=== PATIENT | female | born 1965 | race Caucasian/White ===

== ENCOUNTER 2017-12-12 11:46 | Emergency (ER) | payer OTHER ==
[2017-12-12 12:16] VITALS: RESP 18; TEMP 98.8
[2017-12-12] MEDS ORDERED: RX INFO: IV CONTRAST WAS GIVEN 1 EACH MISC MISCELLANE PRN (13:32)
[2017-12-12] MEDS ORDERED: ONDANSETRON 4 MG/2 ML VIAL IVP STA (13:32)
[2017-12-12] MEDS ORDERED: MORPHINE SULFATE/PF 10MG/10ML VL IVP STA (13:32)
[2017-12-12] MEDS ORDERED: PANTOPRAZOLE 40 MG/10 ML VIAL IVP STA (13:38)
[2017-12-12 14:15] LABS: Anisocytosis Slight; Basophils # (A) 0.1 k/uL (0-0.2); Basophils % (A) 1 %; Eosinophils # (A) 0.4 k/uL (0-0.7); Eosinophils % (A) 5 %; HCT 41.9 % (34.0-46.0); HGB 12.2 gm/dL (11.4-16.0); Hypochromasia Marked; Lymphocytes % (A) 15 %; MCH 22.8 pg (25.0-35.0); MCV 78.4 fL (80.0-100.0); Mean Platelet Volume 11.2; Microcytosis Slight; Monocytes # (A) 0.4 k/uL (0-1.0); Monocytes % (A) 6 %; Neutrophils # (A) 5.1 k/uL (1.3-7.7); Neutrophils % (A) 72 %; Platelet Count 145 k/uL (150-450); RBC 5.35 m/uL (3.80-5.40); RDW 16.5 % (11.5-15.5); WBC 7.1 k/uL (3.8-10.6)
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
[2017-12-12 14:19] LABS: Appearance,Urine Clear (Clear); Bilirubin,Urine Negative (Negative); Blood,Urine Negative (Negative); Color,Urine Light Yellow; Glucose,Urine (UA) Negative (Negative); Ketones,Urine Negative (Negative); Leukocyte Esterase,Urine Trace (Negative); Mucus,Urine Rare /hpf; Nitrite,Urine Negative (Negative); PH, Urine 5.5 (5.0-8.0); Protein,Urine Negative (Negative); Specific Gravity,Urine 1.009 (1.001-1.035); Squamous Epithelial Cell,Urine 4 /hpf (0-4); Urobilinogen,Urine <2.0 mg/dL (<2.0); WBC,Urine 1 /hpf (0-5)
[2017-12-12 14:26] LABS: ALT 28 U/L (9-52); AST 29 U/L (14-36); Albumin 3.9 g/dL (3.5-5.0); Alkaline Phosphatase 69 U/L (38-126); Amylase 45 U/L (30-110); Anion Gap 12 mmol/L; Blood Urea Nitrogen 11 mg/dL (7-17); Calcium 9.2 mg/dL (8.4-10.2); Carbon Dioxide 20 mmol/L (22-30); Chloride 112 mmol/L (98-107); Glucose 98 mg/dL (74-99); Lipase 237 U/L (23-300); Potassium 3.9 mmol/L (3.5-5.1); Sodium 144 mmol/L (137-145); Total Bilirubin 0.2 mg/dL (0.2-1.3); Total Protein 6.6 g/dL (6.3-8.2)
--- NOTE | 2017-12-12 15:52 | CT ---
EXAMINATION TYPE: CT abdomen pelvis w con DATE OF EXAM: 12/12/2017 COMPARISON: NONE HISTORY: Weight loss, decreased appetite, nausea, diarrhea and low abdominal pain. CT DLP: 800 mGycm Automated exposure control for dose reduction was used. CONTRAST: CT scan of the abdomen pelvis is performed with IV Contrast, patient injected with 100 mL of Isovue M 300. FINDINGS- LUNG BASES-there are multiple pulmonary nodules within the right lung the largest is calcified measur ing 8 mm.. LIVER/GB-gallbladder prominent in size. Measures 6.2 cm.. PANCREAS- No gross abnormality is seen. SPLEEN- No gross abnormality is seen. ADRENALS- No gross abnormality is seen. KIDNEYS/BLADDER- no hydronephrosis nephrolithiasis or renal mass. BOWEL-gas pattern is nonspecific. Changes of diverticulosis noted. Appendix is normal.. LYMPH NODES- No greater than 1cm abdominal or pelvic lymph nodes areappreciated. OSSEOUS STRUCTURES- No significant abnormality is seen. OTHER- calcification the uterus suggestive of a uterine fibroid. Retroaortic left renal vein noted. IMPRESSION- 1. Suspect a calcified uterine fibroid. 2. Normal appendix. 3. Mild induration of the fat within the right lower quadrant could be related to partial volume aver aging. Mild inflammatory component of mesenteric right is severe enteritis not excluded correlate cli nically. 4. Mild prominence the gallbladder measuring 6 cm but no evidence of gallstones or intrahepatic bilia ry dilation. 5. Right-sided pulmonary nodules at least one of which is calcified suggestive of granuloma.
[2017-12-12 16:25] VITALS: BP 126/74; PULSE 60
== END 2017-12-12 16:32 | disposition home or self-care (01) ==
LOC: EC 11:46
DX: K52.9 Noninfective gastroenteritis and colitis, unspecified (principal); K21.9 Gastro-esophageal reflux disease without esophagitis; F17.200 Nicotine dependence, unspecified, uncomplicated; Z91.030 Bee allergy status; Z79.899 Other long term (current) drug therapy
CPT/HCPCS: 99284; 96374; 96375 ×2; 36415; 80053; 82150; 83605; 83690; 85025; 81001; 87086; 74177; J2405; C9113; Q9967; J2270

== ENCOUNTER 2018-01-02 11:39 | Day surgery (SDC) | payer OTHER ==
[2017-12-28 12:04] VITALS: BMI 22.0
[~2018-01-02 11:39] MED LIST: LIDOCAINE 1% 20 ML VIAL (10MG/ML) FOR IV START INTRADERMA PRN
[2018-01-02 12:00] VITALS: RESP 16; TEMP 97.6
[2018-01-02] MEDS: LACTATED RINGERS 1,000 ML IV SCH ×2 (12:05→12:34)
[2018-01-02] MEDS ORDERED: GLYCOPYRROLATE 0.2 MG/ML 2 ML VIAL ONE (12:34)
[2018-01-02] MEDS ORDERED: PROPOFOL 10 MG/ML 20 ML VIAL IV ONE (12:34)
[2018-01-02] MEDS ORDERED: LIDOCAINE 1% INJ 10MG/ML (20 ML MDV) ONE (12:34)
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
--- NOTE | 2018-01-02 12:58 | P.PCN ---
Date of Procedure: 01/02/18 Procedure(s) Performed: Preoperative Dx: Abdominal pain Postoperative Dx: Gastritis with erosions, small sliding hiatal hernia, evidence of gastric scarring Procedure: EGD with Bx Anesthesia: Sedation Endoscopist: Dr. Cr Specimens: Antrum Endoscopic Procedure: The patient was on the endoscopy table in the left decubitus position. The Olympus gastroscope was inserted into the oropharynx and passed under direct visualization to the region of the third portion of the duodenum. From that point the scope was slowly withdrawn inspecting all surfaces carefully. There were no neoplastic inflammatory or polypoid lesions throughout the duodenum. The patient had scarring in the distal antrum that was stellate in appearance. This is likely related to prior ulcer disease or surgical intervention. The pylorus was likewise somewhat malformed and it is possible the patient has had a previous resection of the distal stomach with B1 anastomosis. At the region of the suspected pylorus there was evidence of gastritis with a few small erosions. No large ulcers were seen. Biopsies of that area took place. Retroflexion revealed a normal proximal stomach. The patient had a very small sliding hiatal hernia measuring less than 1 cm. The esophagus appeared normal. The patient was then taken to the recovery room in stable condition per anesthesia guidelines. Recommendations: Await biopsy results. Continue antiacid therapy.
[2018-01-02 13:13] VITALS: BP 130/84; PULSE 84
== END 2018-01-02 13:46 | disposition home or self-care (01) ==
LOC: ORWHC2ENDO 11:39
PROVIDERS: ATTEND Surgery
DX: K29.50 Unspecified chronic gastritis without bleeding (principal); K25.9 Gastric ulcer, unspecified as acute or chronic, without hemorrhage or perforation; K44.9 Diaphragmatic hernia without obstruction or gangrene; K21.9 Gastro-esophageal reflux disease without esophagitis; Z87.19 Personal history of other diseases of the digestive system; F40.240 Claustrophobia; F17.210 Nicotine dependence, cigarettes, uncomplicated; Z79.899 Other long term (current) drug therapy; Z91.030 Bee allergy status; Z98.51 Tubal ligation status
CPT/HCPCS: 81025; 88305; 43239; J2001; J2704

== ENCOUNTER → 2018-07-27 | Outpatient (CLI) | payer OTHER ==
--- NOTE | 2018-07-27 15:00 | XR ---
EXAMINATION TYPE: XR chest 2V DATE OF EXAM: 07/27/2018 COMPARISON: NONE TECHNIQUE: PA and lateral views submitted. HISTORY: Cough FINDINGS: The lungs are clear and there is no pneumothorax, pleural effusion, or focal pneumonia. Hypertrophi c and degenerative changes of the thoracolumbar junction. Question small granuloma within the right m iddle lobe. IMPRESSION: 1. No acute process.
== END | disposition home or self-care (01) ==
LOC: RADXRMAIN 14:17
PROVIDERS: ATTEND Physician Assistant
DX: R05 Cough (principal)
CPT/HCPCS: 71046

== ENCOUNTER → 2018-08-22 | Outpatient (CLI) | payer OTHER | LOC: CPPFTMAIN 14:27 | PROVIDERS: ATTEND Family Medicine | DX: R05 Cough (principal) | CPT/HCPCS: 94060; 94726; 94729 ==

== ENCOUNTER 2019-05-01 22:30 | Inpatient (IN) | payer OTHER ==
[2019-05-01] MEDS ORDERED: SODIUM CHLORIDE 0.9% 1,000 ML IV STA (22:46)
[2019-05-01] MEDS ORDERED: PANTOPRAZOLE 40 MG/10 ML VIAL IVP STA (22:46)
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
[2019-05-01 23:05] LABS: Anisocytosis Slight; Basophils # (A) 0.1 k/uL (0-0.2); Basophils % (A) 1 %; Eosinophils # (A) 0.3 k/uL (0-0.7); Eosinophils % (A) 3 %; HCT 23.3 % (34.0-46.0); Hypochromasia Marked; Lymphocytes % (A) 19 %; MCH 15.6 pg (25.0-35.0); MCHC 24.5 g/dL (31.0-37.0); MCV 63.6 fL (80.0-100.0); Microcytosis Marked; Monocytes # (A) 0.7 k/uL (0-1.0); Monocytes % (A) 6 %; Neutrophils # (A) 7.7 k/uL (1.3-7.7); Neutrophils % (A) 70 %; Platelet Count 101 k/uL (150-450); RBC 3.66 m/uL (3.80-5.40); RDW 19.1 % (11.5-15.5)
[2019-05-01 23:13] LABS: ALT 13 U/L (9-52); AST 47 U/L (14-36); African American GFR (CKD) >90 (>60 ml/min/1.73 sqM); Albumin 3.5 g/dL (3.5-5.0); Alkaline Phosphatase 45 U/L (38-126); Anion Gap 11 mmol/L; Blood Urea Nitrogen 33 mg/dL (7-17); Carbon Dioxide 19 mmol/L (22-30); Chloride 110 mmol/L (98-107); Glucose 125 mg/dL (74-99); Magnesium 1.9 mg/dL (1.6-2.3); Potassium 4.5 mmol/L (3.5-5.1); Sodium 140 mmol/L (137-145); Total Bilirubin 0.4 mg/dL (0.2-1.3)
[2019-05-01 23:27] LABS: INR 1.2 (<1.2)
[2019-05-01 23:28] LABS: HGB 5.7 gm/dL (11.4-16.0); Partial Thromboplastin Time 19.1 sec (22.0-30.0)
[2019-05-02] MEDS ORDERED: ONDANSETRON 4 MG/2 ML VIAL IVP STA (00:02)
[2019-05-02] MEDS ORDERED: ONDANSETRON 4 MG/2 ML VIAL IVP PRN (00:02)
[2019-05-02 01:12] LABS: Glucose,Whole Blood 111 mg/dL (75-99)
[2019-05-02 01:42] VITALS: BMI 21.8
[2019-05-02 08:09] LABS: Anisocytosis Moderate; Basophils # (A) 0.1 k/uL (0-0.2); Basophils % (A) 1 %; Eosinophils # (A) 0.2 k/uL (0-0.7); Eosinophils % (A) 2 %; HCT 26.1 % (34.0-46.0); HGB 7.1 gm/dL (11.4-16.0); Hypochromasia Marked; Lymphocytes # (A) 1.8 k/uL (1.0-4.8); Lymphocytes % (A) 22 %; MCH 19.9 pg (25.0-35.0); MCHC 27.3 g/dL (31.0-37.0); Mean Platelet Volume 8.9; Microcytosis Marked; Monocytes # (A) 0.7 k/uL (0-1.0); Monocytes % (A) 9 %; Neutrophils # (A) 5.1 k/uL (1.3-7.7); Neutrophils % (A) 64 %; Platelet Count 105 k/uL (150-450); Poikilocytosis Marked; RBC 3.59 m/uL (3.80-5.40); RDW 21.1 % (11.5-15.5)
[2019-05-02 08:16] LABS: African American GFR (CKD) >90 (>60 ml/min/1.73 sqM); Anion Gap 9 mmol/L; Blood Urea Nitrogen 21 mg/dL (7-17); Calcium 8.1 mg/dL (8.4-10.2); Carbon Dioxide 19 mmol/L (22-30); Chloride 114 mmol/L (98-107); Glucose 75 mg/dL (74-99); MCV 72.8 fL (80.0-100.0); Potassium 3.6 mmol/L (3.5-5.1); Sodium 142 mmol/L (137-145)
[2019-05-02] MEDS: PANTOPRAZOLE 40 MG/10 ML VIAL IVP SCH ×2 (08:34→20:10)
[2019-05-02] MEDS: SODIUM CHLORIDE 0.9% 1,000 ML IV SCH ×2 (11:30→20:10)
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
[2019-05-02] MEDS: ACETAMINOPHEN TAB 500 MG TAB PO PRN (16:05)
[2019-05-02] MEDS: NICOTINE 7MG/24HR PATCH TRANSDERM SCH (16:26)
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
[2019-05-02 18:17] LABS: Anisocytosis Moderate; HCT 26.4 % (34.0-46.0); HGB 7.4 gm/dL (11.4-16.0); Hypochromasia Marked; MCH 19.7 pg (25.0-35.0); MCV 70.3 fL (80.0-100.0); Microcytosis Marked; Platelet Count 131 k/uL (150-450); Poikilocytosis Marked; RBC 3.75 m/uL (3.80-5.40); RDW 21.9 % (11.5-15.5); WBC 9.5 k/uL (3.8-10.6)
[2019-05-02] MEDS: traZODone HCL 50 MG TAB PO SCH (20:10)
[2019-05-03 04:57] LABS: Anisocytosis Moderate; HCT 25.8 % (34.0-46.0); HGB 7.1 gm/dL (11.4-16.0); Hypochromasia Marked; MCH 19.6 pg (25.0-35.0); MCHC 27.6 g/dL (31.0-37.0); MCV 70.9 fL (80.0-100.0); Mean Platelet Volume 9.8; Microcytosis Marked; Platelet Count 125 k/uL (150-450); Poikilocytosis Marked; RBC 3.64 m/uL (3.80-5.40); RDW 21.4 % (11.5-15.5); WBC 6.5 k/uL (3.8-10.6)
[2019-05-03 05:08] LABS: African American GFR (CKD) >90 (>60 ml/min/1.73 sqM); Anion Gap 5 mmol/L; Blood Urea Nitrogen 10 mg/dL (7-17); Carbon Dioxide 20 mmol/L (22-30); Chloride 114 mmol/L (98-107); Glucose 71 mg/dL (74-99); Potassium 3.6 mmol/L (3.5-5.1); Sodium 139 mmol/L (137-145)
[2019-05-03] MEDS: SODIUM CHLORIDE 0.9% 1,000 ML IV SCH (06:38)
[2019-05-03] MEDS: ACETAMINOPHEN TAB 500 MG TAB PO PRN (06:40)
[2019-05-03] MEDS: PANTOPRAZOLE 40 MG/10 ML VIAL IVP SCH ×2 (08:40→21:42)
[2019-05-03] MEDS: NICOTINE 7MG/24HR PATCH TRANSDERM SCH (08:40)
[2019-05-03] MEDS ORDERED: LIDOCAINE 1% INJ 10MG/ML (20 ML MDV) ONE (13:31)
[2019-05-03] MEDS ORDERED: PROPOFOL 10 MG/ML 20 ML VIAL IV ONE (13:31)
[2019-05-03] MEDS ORDERED: IV FLUID CONTINUATION 1,000 ML IV ONE (13:31)
[2019-05-03] MEDS: SODIUM FERRIC GLUCONAT-SUCROSE 125 MG in SODIUM CHLORIDE 0.9% 100 ML IVPB SCH (14:26)
--- NOTE | 2019-05-03 14:27 | P.DS ---
Providers Date of admission: 05/01/19 23:59 Attending physician: Gladis Calzada Consults: 05/02/19 00:02 Consult Physician Routine Consulting Provider: Senthil Cr Consult Reason/Comments: known Do you want consulting provider notified?: Yes 05/02/19 00:07 Consult Physician Routine Consulting Provider: Crow Guerrero Consult Reason/Comments: icu Do you want consulting provider notified?: Yes Primary care physician: Harlan [facility] Hospital Course: patient was admitted for upper GI bleed secondary to either gastritis esophagitis peptic ulcer disease or Angella-Romero tear. Patient underwent upper GI endoscopy today. Patient doesn't have any more clinical evidence of GI bleed no hematemesis no melena. After upper GI endoscopy patient will be discharged today we'll increase the proton pulmonary to 2 twice a day for about a month and we'll start her on sucralfate.patient has chronic iron deficiency anemia with a very low MCV of 65 and ferritin level is around 7 and transfuse her ferritin rate and patient will need IV and transfusions as an outpatient patient will be referred to hematology. PHYSICAL EXAMINATION: GENERAL: The patient is alert and oriented x3, not in any acute distress. Well developed, well nourished. HEENT: Pupils are round and equally reacting to light. EOMI. No scleral icterus. does have conjunctival pallor. Normocephalic, atraumatic. No pharyngeal eryth asiya. No thyromegaly. CARDIOVASCULAR: S1 and S2 present. No murmurs, rubs, or gallops. PULMONARY: Chest is clear to auscultation, no wheezing or crackles. ABDOMEN: Soft, nontender, nondistended, normoactive bowel sounds. No palpable organomegaly. MUSCULOSKELETAL: No joint swelling or deformity. EXTREMITIES: No cyanosis, clubbing, or pedal edema. NEUROLOGICAL: Gross neurological examination did not reveal any focal deficits. SKIN: No rashes. further rest of themedical problems and hospitalization course refer to my care from yesterday Patient Condition at Discharge: Fair Plan - Discharge Summary Discharge Rx Participant: No New Discharge Prescriptions: New Sucralfate [Carafate] 1 gm PO ACHS #100 ml Omeprazole [PriLOSEC] 40 mg PO BID-W/MEALS #60 capsule. Continue traZODone HCL 50 mg PO HS Azithromycin [Zithromax Z-pack] See Taper PO DAILY Discontinued Omeprazole 40 mg PO DAILY Discharge Medication List Azithromycin [Zithromax Z-pack] See Taper PO DAILY 05/01/19 [History] traZODone HCL 50 mg PO HS 05/01/19 [History] Omeprazole [PriLOSEC] 40 mg PO BID-W/MEALS #60 capsule. 05/03/19 [Rx] Sucralfate [Carafate] 1 gm PO ACHS #100 ml 05/03/19 [Rx] Follow up Appointment(s)/Referral(s): Kenn Pal MD [STAFF PHYSICIAN] - 1 Week Harlan Martinez DO [Primary Care Provider] - 3 Days Discharge Disposition: HOME SELF-CARE
--- NOTE | 2019-05-03 14:46 | P.PCN ---
Date of Procedure: 05/03/19 Procedure(s) Performed: Preoperative Dx: Upper GI bleed Postoperative Dx: Pyloric channel ulcer Procedure: EGD with Bx Anesthesia: Sedation Endoscopist: Dr. Cr Specimens: Antrum Endoscopic Procedure: The patient was on the endoscopy table in the left decubitus position. The Olympus gastroscope was inserted into the oropharynx and passed under direct visualization to the region of the third portion of the duodenum. From that point the scope was slowly withdrawn inspecting all surfaces carefully. At the pylorus itself there was noted to be an ulceration posteriorly. This may have carried over into the proximal duodenal bulb although was difficult to say with certainty. There was certainly some mild duodenitis proximally in the first portion. The base of the ulcer did not have a visible vessel or an adherent clot. No active bleeding seen. Mild gastritis present in the prepyloric and antral regions. Significant scarring in the antrum from previous gastric repair. Proximal stomach revealed a small sliding hiatal hernia. The esophagus was then carefully examined. There were no ibis plastic inflammatory or polypoid lesions throughout the visualized esophagus. The patient was then taken to the recovery room in stable condition per anesthesia guidelines. Recommendations: Await biopsies to evaluate for H. pylori. 4 samples obtained. Add Carafate. Twice a day PPIs. Patient will require gastrin level to be checked.
--- NOTE | 2019-05-03 15:19 | P.PN ---
Subjective Progress Note Date: 05/03/19 A 54-year-old female patient with known history of chronic iron deficiency anemia previous history of peptic ulcer disease who came in after she had upper and lower GI bleed. She was having episodes of emesis and later on she threw up bright red blood and developed maroon red stools with subsequent drop in hemoglobin down to 5.7. The patient received a total of 2 units of packed RBC and the patient's hemoglobin is at 7.1. The patient is currently nothing by mouth on IV Protonix and the patient will be undergoing an EGD. The patient denied using any form of nonsteroidal anti-inflammatory medication. She is not taking any antiplatelet agents or anticoagulation. Her PT/INR is within normal limits. Platelet count is slightly at the lower side at 105. She is resting comfortably in bed. No nausea. No vomiting for now. No epigastric pain. She has had previous endoscopies the last one was done by Dr. Ndiaye Bout it showed gastritis with erosions and small sliding hiatal hernia with evidence of gastric scarring.. This procedure was done on 01/02/2018. Most of alcoholism. On 05/03/2019 the patient was seen in the morning and the patient is still nothing by mouth awaiting EGD. The patient was taken EGD at a later stage and afternoon and the patient was found to have a pyloric ulcer. Some ulceration was noted at the pylorus posteriorly. There was also some mild duodenitis and his first portion. The base of the ulcer did not have any visible vessels or adherent lites. Carafate was added. Protonix was continued. Gastrin levels will be checked. Meanwhile, the patient will be allowed to take some clear liquid diet. Hemoglobin is stable. She has not had any further episodes of GI bleeding. Her current hemoglobin is at 7.1. Platelet count is at 125. Objective - Vital Signs Vital signs: Vital Signs Temp 98.2 F 05/03/19 08:00 Pulse 76 05/03/19 14:00 Resp 18 05/03/19 14:00 BP 122/77 05/03/19 14:00 Pulse Ox 98 05/03/19 14:00 Intake & Output 05/02/19 05/03/19 05/03/19 18:59 06:59 18:59 Intake Total 870 1200 800 Output Total 200 800 600 Balance 670 400 200 Weight 51.6 kg Intake: IV 800 500 Sodium Chloride 0.9% 1, 800 400 000 ml @ 100 mls/hr IV . Q10H [facility] Rx#:[id number] Intake, IV Titration 800 400 300 Amount Sodium Chloride 0.9% 1, 800 400 300 000 ml @ 100 mls/hr IV . Q10H [facility] Rx#:[id number] Oral 70 Output: Urine 200 800 600 Other: Voiding Method Bedside Commode Toilet Toilet # Voids 1 1 # Bowel Movements 1 - Exam The patient appeared well nourished and normally developed. Vital signs as documented. Head exam is unremarkable. No scleral icterus or corneal arcus noted. Neck is without jugular venous distension, thyromegaly, or carotid bruits. Carotid upstrokes are brisk bilaterally. Lungs are clear to auscultation and percussion. Cardiac exam reveals the PMI to be normally sized and situated. Rhythm is regular. First and second heart sounds normal. No murmurs, rubs or gallops. Abdominal exam reveals normal bowel sounds, no masses, no organomegaly and no aortic enlargement. Extremities are nonedematous and both femoral and pedal pulses are normal.Examination of the skin revealed no evidence of significant rashes, suspicious appearing nevi or other concerning lesions.. Neurologically the patient is awake and alert and there is no focal neurological deficits. - Labs CBC & Chem 7: 05/03/19 04:30 05/03/19 04:30 Labs: Abnormal Lab Results - Last 24 Hours (Table) 05/02/19 05/03/19 05/03/19 Range/Units 18:04 04:30 04:30 RBC 3.75 L 3.64 L (3.80-5.40) m/uL Hgb 7.4 L 7.1 L (11.4-16.0) gm/dL Hct 26.4 L 25.8 L (34.0-46.0) % MCV 70.3 L 70.9 L (80.0-100.0) fL MCH 19.7 L 19.6 L (25.0-35.0) pg MCHC 28.0 L 27.6 L (31.0-37.0) g/dL RDW 21.9 H 21.4 H (11.5-15.5) % Plt Count 131 L 125 L (150-450) k/uL Chloride (98-107) mmol/L Carbon Dioxide (22-30) mmol/L Glucose (74-99) mg/dL Calcium (8.4-10.2) mg/dL Ferritin 7.1 L (10.0-291.0) ng/mL 05/03/19 Range/Units 04:30 RBC (3.80-5.40) m/uL Hgb (11.4-16.0) gm/dL Hct (34.0-46.0) % MCV (80.0-100.0) fL MCH (25.0-35.0) pg MCHC (31.0-37.0) g/dL RDW (11.5-15.5) % Plt Count (150-450) k/uL Chloride 114 H (98-107) mmol/L Carbon Dioxide 20 L (22-30) mmol/L Glucose 71 L (74-99) mg/dL Calcium 8.0 L (8.4-10.2) mg/dL Ferritin (10.0-291.0) ng/mL Assessment and Plan Plan: 1 acute GI bleeding like to have an upper GI source knowing that the patient has had previous history of peptic ulcer disease on previous endoscopies. Patient is currently nothing by mouth and the patient is on IV Protonix awaiting EGD. On 05/03/2019, the patient's hemoglobin is stable. The patient was found to have a posterior pylorus ulcer along with some mild duodenitis. No active bleeding. Had a faint was admitted to the regimen in addition to PPI. 2 acute blood loss anemia with a drop in hemoglobin down to 5.7, transfuse with 2 units of packed RBC with good response. The patient Silverlon currently is at 7.1 without any signs of acute GI bleeding for the time being. 3 history of chronic anemia, rule out underlying tests demonstrate 4 non-anion gap metabolic acidosis 5 borderline thrombocytopenia with a platelet count of 105 Plan Continue Protonix. Add Carafate. Check gastrin levels. Gradually advance diet as tolerated starting with clear liquids. She can will be transferred out of the intensive care units.
[2019-05-03] MEDS: SUCRALFATE 1 GM TAB PO SCH (17:12)
[2019-05-03] MEDS: traZODone HCL 50 MG TAB PO SCH (21:42)
[2019-05-04 05:53] VITALS: TEMP 98.6
[2019-05-04] MEDS: PANTOPRAZOLE 40 MG/10 ML VIAL IVP SCH (08:16)
[2019-05-04] MEDS: NICOTINE 7MG/24HR PATCH TRANSDERM SCH (08:17)
[2019-05-04] MEDS: SUCRALFATE 1 GM TAB PO SCH ×2 (08:17→12:58)
[2019-05-04] MEDS: SODIUM FERRIC GLUCONAT-SUCROSE 125 MG in SODIUM CHLORIDE 0.9% 100 ML IVPB SCH (09:22)
[2019-05-04 11:18] LABS: Anisocytosis Moderate; HCT 28.2 % (34.0-46.0); HGB 7.8 gm/dL (11.4-16.0); Hypochromasia Marked; MCH 19.9 pg (25.0-35.0); MCHC 27.7 g/dL (31.0-37.0); MCV 71.8 fL (80.0-100.0); Mean Platelet Volume 10.2; Microcytosis Marked; Platelet Count 147 k/uL (150-450); Poikilocytosis Marked; RBC 3.93 m/uL (3.80-5.40); RDW 22.7 % (11.5-15.5); WBC 6.4 k/uL (3.8-10.6)
[2019-05-04 11:48] LABS: Eosinophils # (M) 0.06 k/uL (0-0.7); Lymphocytes # (M) 0.96 k/uL (1.0-4.8); Monocytes # (M) 0.13 k/uL (0-1.0); Neutrophils % (M) 82 %; Nucleated Red Blood Cells 0 /100 WBC (0-0); Polychromasia Present; Total Cells Counted 100
--- NOTE | 2019-05-04 11:48 | P.PN ---
<Nataliya Daiely - Last Filed: 05/04/19 11:44> Subjective Progress Note Date: 05/04/19 CHIEF COMPLAINT: GI bleed HISTORY OF PRESENT ILLNESS: The patient is status post EGD revealing pyloric channel ulcer. No further episodes of hematemesis or melena. Hemoglobin 7.8. Tolerating diet. Gastrin level pending. PHYSICAL EXAM: VITAL SIGNS: Reviewed. GENERAL: Well-developed in no acute distress. HEENT: No sclera icterus. Extraocular movements grossly intact. Moist buccal mucosa. Head is atraumatic, normocephalic. ABDOMEN: Soft. Nondistended. Nontender. NEUROLOGIC: Alert and oriented. Cranial nerves II through XII grossly intact. ASSESSMENT: 1. Upper GI bleed, pt presents with hematemesis and black stools, s/p EGD revealing pyloric channel ulcer 2. Acute blood loss anemia, secondary to above 3. History of EGD 2018 revealing gastritis with erosions, small sliding hiatal hernia, and evidence of gastric scarring PLAN: 1. Continue diet as tolerated 2. Await biopsy results 3. Gastrin level pending 4. Continue Protonix and Carafate 5. Follow up outpatient with Dr. Cr Nurse practitioner note has been reviewed by physician. Signing provider agrees with the documented findings, assessment, and plan of care. Objective - Vital Signs Vital signs: Vital Signs Temp 98.6 F 05/04/19 05:00 Pulse 81 05/04/19 05:00 Resp 18 05/04/19 05:00 BP 95/61 05/04/19 05:00 Pulse Ox 96 05/04/19 05:00 Intake & Output 05/03/19 05/04/19 05/04/19 18:59 06:59 18:59 Intake Total 800 200 Output Total 600 Balance 200 200 Intake: IV 500 Sodium Chloride 0.9% 1, 400 000 ml @ 100 mls/hr IV . Q10H [facility] Rx#:[id number] Intake, IV Titration 300 Amount Sodium Chloride 0.9% 1, 300 000 ml @ 100 mls/hr IV . Q10H [facility] Rx#:[id number] Oral 200 Output: Urine 600 Other: Voiding Method Toilet Toilet # Voids 1 1 - Labs CBC & Chem 7: 05/04/19 10:38 05/03/19 04:30 Labs: Abnormal Lab Results - Last 24 Hours (Table) 05/04/19 Range/Units 10:38 Hgb 7.8 L (11.4-16.0) gm/dL Hct 28.2 L (34.0-46.0) % MCV 71.8 L (80.0-100.0) fL MCH 19.9 L (25.0-35.0) pg MCHC 27.7 L (31.0-37.0) g/dL RDW 22.7 H (11.5-15.5) % Plt Count 147 L (150-450) k/uL <Senthil Cr - Last Filed: 05/04/19 17:12> Subjective As above. Patient doing well. Follow-up as outpatient. Patient not seen by myself today. Objective - Vital Signs Vital signs: Vital Signs Temp 98.6 F 05/04/19 12:48 Pulse 77 05/04/19 12:48 Resp 16 05/04/19 12:48 BP 107/68 05/04/19 12:48 Pulse Ox 100 05/04/19 12:48 Intake & Output 05/03/19 05/04/19 05/04/19 18:59 06:59 18:59 Intake Total 800 200 Output Total 600 Balance 200 200 Intake: IV 500 Sodium Chloride 0.9% 1, 400 000 ml @ 100 mls/hr IV . Q10H [facility] Rx#:[id number] Intake, IV Titration 300 Amount Sodium Chloride 0.9% 1, 300 000 ml @ 100 mls/hr IV . Q10H [facility] Rx#:[id number] Oral 200 Output: Urine 600 Other: Voiding Method Toilet Toilet # Voids 1 1 1 - Labs CBC & Chem 7: 05/04/19 10:38 05/03/19 04:30 Labs: Abnormal Lab Results - Last 24 Hours (Table) 05/04/19 Range/Units 10:38 Hgb 7.8 L (11.4-16.0) gm/dL Hct 28.2 L (34.0-46.0) % MCV 71.8 L (80.0-100.0) fL MCH 19.9 L (25.0-35.0) pg MCHC 27.7 L (31.0-37.0) g/dL RDW 22.7 H (11.5-15.5) % Plt Count 147 L (150-450) k/uL Lymphocytes # (Manual) 0.96 L (1.0-4.8) k/uL
[2019-05-04 11:49] LABS: Mixed Population RBC Present
[2019-05-04] MEDS ORDERED: SODIUM FERRIC GLUCONAT-SUCROSE 125 MG in SODIUM CHLORIDE 0.9% 100 ML IVPB ONE (13:21)
[2019-05-04 13:23] VITALS: BP 107/68; PULSE 77; RESP 16
--- NOTE | 2019-05-04 15:43 | P.PN ---
Subjective Progress Note Date: 05/04/19 Principal diagnosis: Acute GI bleed. A 54-year-old female patient with known history of chronic iron deficiency anemia previous history of peptic ulcer disease who came in after she had upper and lower GI bleed. She was having episodes of emesis and later on she threw up bright red blood and developed maroon red stools with subsequent drop in hemoglobin down to 5.7. The patient received a total of 2 units of packed RBC and the patient's hemoglobin is at 7.1. The patient is currently nothing by mouth on IV Protonix and the patient will be undergoing an EGD. The patient denied using any form of nonsteroidal anti-inflammatory medication. She is not taking any antiplatelet agents or anticoagulation. Her PT/INR is within normal limits. Platelet count is slightly at the lower side at 105. She is resting comfortably in bed. No nausea. No vomiting for now. No epigastric pain. She has had previous endoscopies the last one was done by Dr. Ndiaye Bout it showed gastritis with erosions and small sliding hiatal hernia with evidence of gastric scarring.. This procedure was done on 01/02/2018. Most of alcoholism. On 05/03/2019 the patient was seen in the morning and the patient is still nothing by mouth awaiting EGD. The patient was taken EGD at a later stage and afternoon and the patient was found to have a pyloric ulcer. Some ulceration was noted at the pylorus posteriorly. There was also some mild duodenitis and his first portion. The base of the ulcer did not have any visible vessels or adherent lites. Carafate was added. Protonix was continued. Gastrin levels will be checked. Meanwhile, the patient will be allowed to take some clear liqu id diet. Hemoglobin is stable. She has not had any further episodes of GI bleeding. Her current hemoglobin is at 7.1. Platelet count is at 125. The patient is seen today 05/04/2019 in follow-up on the regular medical floor. She remains awake and alert in no acute distress. She did undergo EGD with biopsies yesterday and was found to have a pyloric channel ulcer. Carafate was added to her PPI. No further bleeding noted. She is maintaining good O2 saturations up to 100% on room air. She's been afebrile. Hemodynamically stable. White count 6.4. Hemoglobin 7.8. Objective - Vital Signs Vital signs: Vital Signs Temp 98.6 F 05/04/19 12:48 Pulse 77 05/04/19 12:48 Resp 16 05/04/19 12:48 BP 107/68 05/04/19 12:48 Pulse Ox 100 05/04/19 12:48 Intake & Output 05/03/19 05/04/19 05/04/19 18:59 06:59 18:59 Intake Total 800 200 Output Total 600 Balance 200 200 Intake: IV 500 Sodium Chloride 0.9% 1, 400 000 ml @ 100 mls/hr IV . Q10H MARIE Rx#:[id number] Intake, IV Titration 300 Amount Sodium Chloride 0.9% 1, 300 000 ml @ 100 mls/hr IV . Q10H MARIE Rx#:[id number] Oral 200 Output: Urine 600 Other: Voiding Method Toilet Toilet # Voids 1 1 1 - Exam GENERAL EXAM: Alert, pleasant 54-year-old female patient, active, comfortable in no apparent distress. HEAD: Normocephalic. EYES: Normal reaction of pupils, equal size. NOSE: Clear with pink turbinates. THROAT: No erythema or exudates. NECK: No masses, no JVD. CHEST: No chest wall deformity. LUNGS: Equal air entry with no crackles, wheeze, rhonchi or dullness. CVS: S1 and S2 normal with no audible murmur, regular rhythm. ABDOMEN: No hepatosplenomegaly, normal bowel sounds, no guarding or rigidity. SPINE: No scoliosis or deformity SKIN: No rashes CENTRAL NERVOUS SYSTEM: No focal deficits, tone is normal in all 4 extremities. EXTREMITIES: There is no peripheral edema. No clubbing, no cyanosis. Peripheral pulses are intact. - Labs CBC & Chem 7: 05/04/19 10:38 05/03/19 04:30 Labs: Abnormal Lab Results - Last 24 Hours (Table) 05/04/19 Range/Units 10:38 Hgb 7.8 L (11.4-16.0) gm/dL Hct 28.2 L (34.0-46.0) % MCV 71.8 L (80.0-100.0) fL MCH 19.9 L (25.0-35.0) pg MCHC 27.7 L (31.0-37.0) g/dL RDW 22.7 H (11.5-15.5) % Plt Count 147 L (150-450) k/uL Lymphocytes # (Manual) 0.96 L (1.0-4.8) k/uL Assessment and Plan Assessment: Impression: 1 acute GI bleeding like to have an upper GI source knowing that the patient has had previous history of peptic ulcer disease on previous endoscopies. Patient is currently nothing by mouth and the patient is on IV Protonix. EGD revealed posterior pylorus ulcer along with some mild duodenitis Carafate added to the PPI. 2 acute blood loss anemia with a drop in hemoglobin down to 5.7, transfuse with 2 units of packed RBC with good response. Current hemoglobin 7.8. 3 history of chronic anemia, rule out underlying tests demonstrate 4 non-anion gap metabolic acidosis 5 borderline thrombocytopenia with a platelet count improved to 147,000 Plan: The patient was seen and evaluated by Dr. Guerrero. She is stable from the pulmonary and critical care standpoint. The plan is for discharge home today. I, the cosigning physician, performed a history & physical examination of the patient. Lungs sounds are clear. Maintaining good O2 saturations in the 90s on room air. I discussed the assessment and plan of care with my nurse practitioner, Meghan Nina. I attest to the above note as dictated by her.
--- NOTE | 2019-05-04 16:37 | P.DS ---
Providers Date of admission: 05/01/19 23:59 Attending physician: Gladis Calzada Consults: 05/02/19 00:02 Consult Physician Routine Consulting Provider: Senthil Cr Consult Reason/Comments: known Do you want consulting provider notified?: Yes 05/02/19 00:07 Consult Physician Routine Consulting Provider: Crow Guerrero Consult Reason/Comments: icu Do you want consulting provider notified?: Yes Primary care physician: [facility] Course: Patient doesn't have any more GI bleed is being discharged today cleared by general surgery. Patient will be given under the dose of IV ferritin and oral iron supplementation at home and will be discharged today Please refer to my dictation of discharge summary from yesterday PHYSICAL EXAMINATION: GENERAL: The patient is alert and oriented x3, not in any acute distress. Well developed, well nourished. HEENT: Pupils are round and equally reacting to light. EOMI. No scleral icterus. No conjunctival pallor. Normocephalic, atraumatic. No pharyngeal erythema. No thyromegaly. CARDIOVASCULAR: S1 and S2 present. No murmurs, rubs, or gallops. PULMONARY: Chest is clear to auscultation, no wheezing or crackles. ABDOMEN: Soft, nontender, nondistended, normoactive bowel sounds. No palpable organomegaly. MUSCULOSKELETAL: No joint swelling or deformity. EXTREMITIES: No cyanosis, clubbing, or pedal edema. NEUROLOGICAL: Gross neurological examination did not reveal any focal deficits. SKIN: No rashes. Patient Condition at Discharge: Fair Plan - Discharge Summary Discharge Rx Participant: No New Discharge Prescriptions: New Sucralfate [Carafate] 1 gm PO ACHS #100 ml Omeprazole [PriLOSEC] 40 mg PO BID-W/MEALS #60 capsule. Ferrous Sulfate [Feosol] 325 mg PO BID #60 tab Polyethylene Glycol 3350 [Miralax] 17 gm PO DAILY PRN 30 Days packet PRN Reason: Constipation Continue traZODone HCL 50 mg PO HS Azithromycin [Zithromax Z-pack] See Taper PO DAILY Discontinued Omeprazole 40 mg PO DAILY Discharge Medication List Azithromycin [Zithromax Z-pack] See Taper PO DAILY 05/01/19 [History] traZODone HCL 50 mg PO HS 05/01/19 [History] Omeprazole [PriLOSEC] 40 mg PO BID-W/MEALS #60 capsule. 05/03/19 [Rx] Sucralfate [Carafate] 1 gm PO ACHS #100 ml 05/03/19 [Rx] Ferrous Sulfate [Feosol] 325 mg PO BID #60 tab 05/04/19 [Rx] Polyethylene Glycol 3350 [Miralax] 17 gm PO DAILY PRN 30 Days packet 05/04/19 [Rx] Follow up Appointment(s)/Referral(s): Senthil Cr MD [Medical Doctor] - 05/09/19 4:30 pm Kenn Pal MD [STAFF PHYSICIAN] - 1 Week (Please follow up with Hematology outpatient for follow up on Anemia and Iron deficiency. Also possible outpatient Iron infusions. office will call with appointment date and time) Harlan Martinez DO [Primary Care Provider] - 05/10/19 10:30 am Patient Instructions/Handouts: Peptic Ulcer (DC), Gastrointestinal Bleeding (DC)
== END 2019-05-04 16:04 | disposition home or self-care (01) | DRG 378 ==
LOC: EC 22:30 → 2SICU 23:59 → 4MS4W 05-03 19:58
PROVIDERS: ADMIT Hospitalist; ATTEND Hospitalist
PROC: 30233N1 Transfusion of Nonautologous Red Blood Cells into Peripheral Vein, Percutaneous Approach (ICD-10-PCS; 2019-05-02)
PROC: 0DB78ZX Excision of Stomach, Pylorus, Via Natural or Artificial Opening Endoscopic, Diagnostic (ICD-10-PCS; principal; 2019-05-03 13:45)
DX: K25.4 Chronic or unspecified gastric ulcer with hemorrhage (principal); D62 Acute posthemorrhagic anemia; E87.2 Acidosis; K29.71 Gastritis, unspecified, with bleeding; K29.80 Duodenitis without bleeding; D69.6 Thrombocytopenia, unspecified; E87.8 Other disorders of electrolyte and fluid balance, not elsewhere classified; D50.9 Iron deficiency anemia, unspecified; D72.829 Elevated white blood cell count, unspecified; F17.210 Nicotine dependence, cigarettes, uncomplicated; K21.9 Gastro-esophageal reflux disease without esophagitis; K44.9 Diaphragmatic hernia without obstruction or gangrene; G43.909 Migraine, unspecified, not intractable, without status migrainosus; F40.240 Claustrophobia; Z87.11 Personal history of peptic ulcer disease; Z79.899 Other long term (current) drug therapy; Z91.030 Bee allergy status; Z98.51 Tubal ligation status
CPT/HCPCS: 36415; 43239; 80048; 80053; 82728; 82941; 83605; 83690; 83735; 84484; 85025; 85027; 85610; 85730; 86850; 86900; 86901; 86920; 88305; 96361; 96374; 99285

== ENCOUNTER → 2019-08-10 | Day surgery (SDC) | payer OTHER ==
[~2019-08-10] MED LIST changes: +LACTATED RINGERS 1,000 ML IV SCH; +LIDOCAINE 1% INJ 10MG/ML (20 ML MDV) ONE; +PROPOFOL 10 MG/ML 20 ML VIAL IV ONE
[2019-08-10 11:36] VITALS: TEMP 97.9
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
--- NOTE | 2019-08-10 12:01 | P.PCN ---
Date of Procedure: 08/10/19 Procedure(s) Performed: Preoperative Dx: Peptic ulcer disease Postoperative Dx: Gastritis, scarring from previous ulcer disease, small hiatal hernia Procedure: EGD with Bx Anesthesia: Sedation Endoscopist: Dr. Cr Specimens: Antrum, body Endoscopic Procedure: The patient was on the endoscopy table in the left decubitus position. The Olympus gastroscope was inserted into the oropharynx and passed under direct visualization to the region of the third portion of the duodenum. From that point the scope was slowly withdrawn inspecting all surfaces carefully. There were no neoplastic inflammatory or polypoid lesions throughout the duodenum. The pylorus was widely patent. The stomach was carefully inspected. There was scarring in the antrum and body of the stomach from previous ulcer disease. There was gastritis present without ulcerations at this time. Retroflexion revealed a small sliding hiatal hernia. The esophagus was then carefully examined. There were no neoplastic inflammatory or polypoid lesions throughout the visualized esophagus. The patient was then taken to the recovery room in stable condition per anesthesia guidelines. Recommendations: Continue antiacid therapy. Encourage tobacco cessation and minimal alcohol use. Recommend follow-up EGD at time of next colonoscopy.
[2019-08-10 12:09] VITALS: RESP 17
[2019-08-10 12:25] VITALS: BP 134/86; PULSE 76
== END ==
LOC: ORWHC2ENDO 10:58
PROVIDERS: ATTEND Surgery
DX: K31.9 Disease of stomach and duodenum, unspecified (principal); K29.50 Unspecified chronic gastritis without bleeding; K21.9 Gastro-esophageal reflux disease without esophagitis; K44.9 Diaphragmatic hernia without obstruction or gangrene; D64.9 Anemia, unspecified; G43.909 Migraine, unspecified, not intractable, without status migrainosus; R29.90 Unspecified symptoms and signs involving the nervous system; K27.9 Peptic ulcer, site unspecified, unspecified as acute or chronic, without hemorrhage or perforation; Z98.51 Tubal ligation status; F40.240 Claustrophobia; F17.210 Nicotine dependence, cigarettes, uncomplicated; Z79.899 Other long term (current) drug therapy; Z91.030 Bee allergy status
CPT/HCPCS: 88305; 43239; J2001; J2704

== ENCOUNTER 2020-05-11 02:36 | Emergency (ER) | payer OTHER ==
[2020-05-11] MEDS ORDERED: SODIUM CHLORIDE 0.9% 1,000 ML IV STA (02:44)
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
[2020-05-11 03:25] LABS: Basophils # (A) 0.1 k/uL (0-0.2); Basophils % (A) 1 %; Eosinophils # (A) 0.3 k/uL (0-0.7); Eosinophils % (A) 4 %; HCT 46.7 % (34.0-46.0); HGB 14.3 gm/dL (11.4-16.0); Hypochromasia Slight; Lymphocytes # (A) 2.8 k/uL (1.0-4.8); Lymphocytes % (A) 34 %; MCH 26.2 pg (25.0-35.0); MCHC 30.6 g/dL (31.0-37.0); MCV 85.8 fL (80.0-100.0); Mean Platelet Volume 10.2; Monocytes # (A) 0.4 k/uL (0-1.0); Monocytes % (A) 5 %; Neutrophils # (A) 4.2 k/uL (1.3-7.7); Neutrophils % (A) 52 %; Platelet Count 163 k/uL (150-450); RBC 5.44 m/uL (3.80-5.40); WBC 8.2 k/uL (3.8-10.6)
[2020-05-11 03:29] LABS: Appearance,Urine Clear (Clear); Bilirubin,Urine Negative (Negative); Blood,Urine Negative (Negative); Color,Urine Colorless; Glucose,Urine (UA) Negative (Negative); Ketones,Urine Negative (Negative); Leukocyte Esterase,Urine Negative (Negative); Nitrite,Urine Negative (Negative); PH, Urine 5.5 (5.0-8.0); Protein,Urine Negative (Negative); Specific Gravity,Urine 1.002 (1.001-1.035); Urobilinogen,Urine <2.0 mg/dL (<2.0)
[2020-05-11 03:33] LABS: ALT 12 U/L (4-34); AST 23 U/L (14-36); African American GFR (CKD) >90 (>60 ml/min/1.73 sqM); Albumin 4.6 g/dL (3.5-5.0); Alkaline Phosphatase 64 U/L (38-126); Anion Gap 13 mmol/L; Blood Urea Nitrogen 13 mg/dL (7-17); Calcium 9.3 mg/dL (8.4-10.2); Carbon Dioxide 18 mmol/L (22-30); Chloride 112 mmol/L (98-107); Glucose 86 mg/dL (74-99); Non-African American GFR(CKD) >90 (>60 ml/min/1.73 sqM); Potassium 3.4 mmol/L (3.5-5.1); Sodium 143 mmol/L (137-145); Total Bilirubin 0.2 mg/dL (0.2-1.3); Total Protein 7.2 g/dL (6.3-8.2)
[2020-05-11 03:43] LABS: INR 0.9 (<1.2); Partial Thromboplastin Time 22.3 sec (22.0-30.0); Prothrombin Time 9.9 sec (9.0-12.0)
[2020-05-11 03:44] LABS: Amphetamine Screen,Urine Not Detected (NotDetected); Barbiturate Screen,Urine Not Detected (NotDetected); Benzodiazepines Screen,Urine Not Detected (NotDetected); Cocaine Screen,Urine Not Detected (NotDetected); Methadone Screen, Urine Not Detected (NotDetected); Opiate Screen,Urine Not Detected (NotDetected); Oxycodone Screen, Urine Not Detected (NotDetected); Phencyclidine Screen,Urine Not Detected (NotDetected); Tricyclic Antidepressant,Urine Not Detected (NotDetected); Urn Cannabinoid Scrn Detected (NotDetected)
[2020-05-11 04:39] LABS: Alcohol 238 mg/dL
[2020-05-11 05:23] VITALS: BP 134/80; PULSE 81; RESP 16; TEMP 97.9
== END 2020-05-11 05:04 | disposition home or self-care (01) ==
LOC: EC 02:36
DX: S06.0X0A Concussion without loss of consciousness, initial encounter (principal); S00.83XA Contusion of other part of head, initial encounter; T74.11XA Adult physical abuse, confirmed, initial encounter; R78.0 Finding of alcohol in blood; Y90.9 Presence of alcohol in blood, level not specified; Z91.030 Bee allergy status; Y04.2XXA Assault by strike against or bumped into by another person, initial encounter; Y93.89 Activity, other specified; Y92.89 Other specified places as the place of occurrence of the external cause; Y07.59 Other non-family member, perpetrator of maltreatment and neglect
CPT/HCPCS: 36415; 70450; 70486; 72125; 80053; 80306; 80320; 81003; 84484; 85025; 85610; 85730; 86850; 86900; 86901; 93005; 96360; 96361; 99285

== ENCOUNTER → 2020-07-30 | Outpatient (CLI) | payer OTHER ==
--- NOTE | 2020-07-30 11:12 | US ---
EXAMINATION TYPE: US pelvis complete transvag DATE OF EXAM: 07/30/2020 COMPARISON: NONE CLINICAL HISTORY: 55-year-old female Post menopausal bleeding N95.0. intermittent spotting for 2 week s TECHNIQUE: Transabdominal sonographic images of the pelvis were acquired. Transvaginal sonographic images were medically necessary to better assess the following anatomy: ovaries Date of LMP: unknown FINDINGS: EXAM MEASUREMENTS: Uterus: 5.7 x 2.7 x 3.5 cm Endometrial Stripe: 0.3 cm Right Ovary: 1.4 x 1.4 x 1.4 cm Left Ovary: unable to visualize 1. Uterus: Anteverted with an intramural calcified area along the right lateral uterine body measur ing 1.4 x 0.7 x 1.0cm 2. Endometrium: appears wnl 3. Right Ovary: Simple cyst measuring 1.0 x 0.9 x 1.2cm 4. Left Ovary: Obscured by overlying bowel gas 5. Bilateral Adnexa: appears wnl 6. Posterior cul-de-sac: wnl IMPRESSION: 1. A 1.4 cm calcification within the right lateral uterine body, likely a calcified fibroid. 2. The endometrial stripe measures thin at 3 mm. 3. A 1.2 cm simple cyst of the right ovary. This is abnormal for a postmenopausal female and could re present a benign cystic epithelial neoplasm of the ovary. Annual ultrasound surveillance recommended. 4. Left ovary could not be visualized.
== END | disposition home or self-care (01) ==
LOC: RADUSWWP 09:57
PROVIDERS: ATTEND Family Medicine
DX: N85.9 Noninflammatory disorder of uterus, unspecified (principal); N83.291 Other ovarian cyst, right side; N95.9 Unspecified menopausal and perimenopausal disorder
CPT/HCPCS: 76830; 76856

== ENCOUNTER → 2020-09-01 | Outpatient (CLI) | payer OTHER ==
[~2020-09-01] MED LIST changes: -LACTATED RINGERS 1,000 ML IV SCH; -LIDOCAINE 1% 20 ML VIAL (10MG/ML) FOR IV START INTRADERMA PRN; -LIDOCAINE 1% INJ 10MG/ML (20 ML MDV) ONE; -PROPOFOL 10 MG/ML 20 ML VIAL IV ONE; +SODIUM CHLORIDE 0.9% 500 ML 500 ML in EMPTY BAG 1 BAG IV PRN; +SODIUM FERRIC GLUCONAT-SUCROSE 125 MG in SODIUM CHLORIDE 0.9% 100 ML IVPB ONE
[2020-09-01 13:54] VITALS: BP 125/82; PULSE 71; RESP 16; TEMP 98.3
== END | disposition home or self-care (01) ==
LOC: PROCWHC3 13:32
PROVIDERS: ATTEND Nurse Practitioner Family
DX: E61.1 Iron deficiency (principal)
CPT/HCPCS: 96365; J2916

== ENCOUNTER → 2023-09-14 | Day surgery (SDC) | payer OTHER ==
[2023-09-07 16:33] VITALS: BMI 22.4
[~2023-09-14] MED LIST changes: +LACTATED RINGERS 1,000 ML IV SCH; +LIDOCAINE 1% (10MG/ML) FOR IV START INTRADERMA PRN; -SODIUM CHLORIDE 0.9% 500 ML 500 ML in EMPTY BAG 1 BAG IV PRN; -SODIUM FERRIC GLUCONAT-SUCROSE 125 MG in SODIUM CHLORIDE 0.9% 100 ML IVPB ONE
== END ==
LOC: ORWHC2ENDO 09:39
PROVIDERS: ATTEND Internal Medicine Gastroenterology
DX: Z53.8 Procedure and treatment not carried out for other reasons (principal); Z12.11 Encounter for screening for malignant neoplasm of colon

== ENCOUNTER → 2024-09-26 | Outpatient (CLI) | payer OTHER ==
--- NOTE | 2024-09-26 11:48 | XR ---
EXAMINATION TYPE: XR thoracic spine 3V, XR lumbosacral spine 5V DATE OF EXAM: 09/26/2024 COMPARISON: NONE CLINICAL INDICATION: Female, 59 years old with history of M54.6 PAIN IN THORACIC SPINE M54.50 Low aye k pain; FINDINGS: Thoracic spine: Small T12 ribs. All pedicles are visualized. Moderate degenerative disc disease and endplate spondylo sis lower thoracic spine. Accentuated lower thoracic kyphosis. Vertebral body heights are preserved. Alignment maintained. Additional moderate spondylotic change noted on the swimmer's view within the c ervical spine. Lumbar spine: Levoconvex curvature. Transitional lumbosacral segment. Hypertrophic facet arthropathy mid to lower l umbar spine. Degenerative grade 1 retrolisthesis L2-L3 and grade 1, nearly grade 2 anterolisthesis L4 -L5. Vertebral body heights are preserved. IMPRESSION: 1. Thoracic spine: Moderate degenerative disc disease lower thoracic spine. Accentuated lower thoraci c kyphosis. No vertebral compression collapse or malalignment. 2. Lumbar spine: Levoconvex scoliosis. Hypertrophic facet arthropathy with grade 1, nearly grade 2 an terolisthesis at L4-L5 and grade 1 retrolisthesis L2-L3. [facility], , 09/26/2024 11:46 AM
== END | disposition home or self-care (01) ==
LOC: RADXRMAIN 11:11
PROVIDERS: ATTEND Family Medicine
DX: M54.6 Pain in thoracic spine (principal); M43.16 Spondylolisthesis, lumbar region; M47.816 Spondylosis without myelopathy or radiculopathy, lumbar region; M51.34 Other intervertebral disc degeneration, thoracic region; M51.360 Other intervertebral disc degeneration, lumbar region with discogenic back pain only
CPT/HCPCS: 72070; 72110